=== PATIENT | female | born 1950 | race Caucasian/White ===

== ENCOUNTER 2016-10-26 10:15 | Inpatient (IN) ==
[2016-10-26 11:23] LABS: Apearance,Urine Cloudy (Clear); RBC,Urine 117994 /HPF (0-4); Urine Color Red (Yellow); Urine Specific Gravity 1.015 (1.001-1.035)
[2016-10-26 11:24] LABS: Bilirubin,Urine Negative (Negative); Blood, Urine Large mg/dL (Negative); Glucose,Urine (UA) Negative (Negative); Ketones,Urine Negative (Negative); Nitrite,Urine Negative (Negative); Protein,Urine >500 MG/DL; Urine Urobilinogen 0.2 EU/DL (0.2-1.0)
[2016-10-26 11:25] LABS: Basophils # 0.1 10*3/uL (0.0-0.2); Basophils % 0.5 % (0.0-0.8); Eosinophils # 0.1 10*3/uL (0.0-0.87); Eosinophils % 0.4 % (0.00-10.9); Hematocrit 43.3 VOL% (35.7-47.0); Hemoglobin 14.6 GM/DL (12.0-16.0); Immature Granulocytes % 0.7 %; Immature Granulocytes Absolute 0.13 #; Lymphocytes # 1.1 10*3/uL (1.4-4.0); Lymphocytes % 5.4 % (21.3-54.2); Mean Corpuscular HGB Conc 33.7 GM/DL (32-36); Mean Corpuscular Hemoglobin 30 PG (27-34); Mean Corpuscular Volume 89.5 FL (87-102); Mean Platelet Volume 9.7 FL (9.6-12.0); Monocytes # 1.7 10*3/uL (0.11-0.8); Monocytes % 8.7 % (1.7-12.7); Neutrophils # 16.8 10*3/uL (1.4-7.4); Neutrophils % 84.3 % (38.7-73.9); Platelet Count 291 T/CUMM (130-400); Red Blood Count 4.84 MC/CUMM (3.8-5.5); White Blood Count 19.9 T/CUMM (4-12)
[2016-10-26 12:01] LABS: Albumin 3.8 G/DL (3.4-5.0); Bilirubin,Total 0.7 MG/DL (0.2-1.0); Calcium 9.1 MG/DL (8.5-10.1); Osmolality,Calculated 280.3 MOS/KG (273-304); Potassium 4.5 MMOL/L (3.5-5.1); Total Protein 6.5 G/DL (6.4-8.3)
--- NOTE | 2016-10-26 12:40 | CT Report ---
Referring physician: Zahra Arredondo EXAM: CT abdomen and pelvis without contrast DATE: 10/26/2016 COMPARISON: 09/14/2008 REASON: Dysuria, hematuria, leukocytosis, generalized abdominal pain TECHNIQUE: Axial images of the abdomen and pelvis were obtained without the use of contrast. Coronal and sagittal reformatted images were also provided. Total DLP is 195.7 mGy*cm. 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 The liver is normal in size with no masses, dilated ducts, are calcified gallstones. The spleen, pancreas, adrenal glands, and left kidney are stable in appearance. Minimal right hydronephrosis with periureteral fluid/soft tissue stranding. No definite renal or ureteral calculi are identified. The abdominal aorta is normal in size with no adjacent adenopathy. No dilatation of the small bowel. Limited evaluation of bowel without oral contrast with no evidence of diverticulitis, or free air. Mild gaseous distention of the colon. Prior hysterectomy with decompressed urinary bladder. Minimal free fluid in the right pelvis. Degenerative changes are noted. The appendix is not confidently identified on either exam. IMPRESSION: Minimal right hydronephrosis with no renal or ureteral calculi. Right periureteral fluid/soft tissue stranding which could be related to recent passage of a calculus, inflammation, infectious process, etc. Decompressed urinary bladder which makes it difficult to evaluate for possible bladder wall thickening. Mild gaseous distention of the colon which can be seen with an ileus, etc. Limited evaluation of bowel without oral contrast. 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 Prior hysterectomy with nonspecific minimal free fluid in the right pelvis. The CT exam was performed using one or more of the following dose reduction techniques: Automated exposure control and adjustment of the mA and/or kV according to patient size. PROCEDURE INTERPRETED AT [facility] DEPARTMENT OF RADIOLOGY Final Report Signed by: Dr. Leticia Carrillo
[2016-10-26] MEDS ORDERED: SODIUM CHLORIDE 0.9% 1,000 ML IV STA (12:56)
[2016-10-26] MEDS ORDERED: cefTRIAXone 1,000 MG in SODIUM CHLORIDE 0.9% 100 ML IV STA (12:56)
--- NOTE | 2016-10-26 12:58 | Emergency Department Note ---
Arrival - Arrival Chief Complaint: Urogenital - Female Stated Complaint: blood in urine ED Nursing Triage Note: Pt c/o blood in urine since Tuesday with abd and back pain. Mode of Arrival: Ambulatory Source: Patient Time Seen by Provider: 10/26/16 10:54 - History of Present Illness HPI Narrative: 65 y/o female presents to the ER complaining of gross hematuria, dysuria, back pain, and abdominal pain. Symptoms starting Tuesday and has continued to worsen. Denies N/V or fever. Denies history of kidney stones. Past medical history significant for dementia, hyst, T&A, vertigo, and depression. Primary Care Physician: Dr. Hudson Onset (ago): day(s) (4) Severity: moderate Allergies/Adverse Reactions: Allergies Allergy/AdvReac Type Severity Reaction Status Date / Time No Known Allergies Allergy Verified 01/14/16 08:46 Home Medications: Home Medications Medication Instructions Recorded Confirmed Type Meclizine [Antivert] 25 mg PO TID PRN 01/14/16 01/14/16 History Ondansetron HCl 8 mg PO Q8H PRN 01/14/16 01/14/16 History Tramadol HCl [Tramadol Tab] 50 - 100 mg PO Q6H PRN 01/14/16 01/14/16 History buPROPion [Wellbutrin] 100 mg PO 0700,1600 01/14/16 01/14/16 History clonazePAM [Clonazepam] 0.5 mg PO BID PRN 01/14/16 01/14/16 History Review of System - Review of System 12 point system: reviewed and no additional remarkable complaints except as stated - Review of System Gastrointestinal: Present: abdominal pain Genitourinary female: Present: dysuria, hematuria Musculoskeletal: Present: back pain Medical,Surgical,& Family Hx - Medical History Respiratory: History of: Respiratory Problems (right lung surgery for a "cyst") - Surgical History HEENT Surgeries: Surgical HX of: Tonsilectomy & Adenoidectomy Reproductive Surgeries: Surgical HX of;: Section, Hysterectomy - Social History Smoking Status: Never smoker Exam Vital Signs: Vital Signs Temperature 98.7 F 10/26/16 10:33 Pulse Rate 86 10/26/16 11:26 Respiratory Rate 20 10/26/16 11:26 Blood Pressure 118/71 10/26/16 11:26 O2 Sat by Pulse Oximetry 96 10/26/16 11:26 - General General appearance: alert, in no apparent distress - ENT ENT exam: Present: normal exam, normal oropharynx, mucous membranes moist - Chest Chest inspection: Present: normal inspection - Respiratory Respiratory exam: Present: normal lung sounds bilaterally - Cardiovascular Cardiovascular exam: Present: regular rate, normal rhythm, normal heart sounds - Abdominal Exam Abdominal exam: Present: soft, tenderness (diffuse ), normal bowel sounds - Extremities Exam Extremities exam: Present: normal inspection, full ROM - Back Exam Back exam: Absent: CVA tenderness (R), CVA tenderness (L) - Neurological Exam Neurological exam: Present: alert, oriented X3 - Psychiatric Psychiatric exam: Present: normal affect, normal mood - Skin Skin exam: Present: warm, dry Course - Consultations Consultation #1: Hospitalist Time: 13:00 (Will admit patient ) Results - Labs CBC & BMP: 10/26/16 11:15 10/26/16 11:15 Lab Results: I have reviewed the patients labs - Diagnostic Findings Procedure: CT Abdomen and Pelvis: image reviewed by me, report reviewed by me ( minimal right hydonephrosis with no renal or ureteral calculi. Right periuretral fluid/soft tissue stranding which cough be related to recent passage of calculus, inflammation, or infectious process. Mild gaseous distention of the colon which can be seen with an ileus. ) Disposition Clinical Impression: Leukocytosis, Hydronephrosis Case discussed with: patient Disposition: Still a Patient Instructions: Acute Hematuria (ED)
[2016-10-26] MEDS ORDERED: cefTRIAXone 1,000 MG VIAL ONE (13:09)
--- NOTE | 2016-10-26 14:20 | Hospitalist History & Physical ---
Assessment and Plan - Time spent with patient Time spent with patient: Greater than 30 minutes (1) Pyelonephritis Status: Acute Assessment and plan: 65-year-old white female with history of dementia, chronic pain, depression and anxiety admitted by hospitalist service with pyelonephritis with leukocytosis, gross hematuria, abdominal and flank pain, and hydronephrosis. Patient will be started on antibiotics and IV fluids. Consult urology for the hydronephrosis and periureteral fluid and soft tissue stranding due to possible obstruction. Will restart patient's home medicines when they get entered into the system. Dr. Rodas will see and examined patient and further recommendations to follow. Current Visit: Yes (2) Depression Status: Acute Current Visit: Yes (3) Anxiety Status: Acute Current Visit: Yes (4) Chronic pain Status: Acute Current Visit: Yes (5) Dementia Status: Acute Current Visit: Yes (6) Leukocytosis Status: Acute Current Visit: Yes (7) Hydronephrosis Status: Acute Current Visit: Yes (8) Hematuria Status: Acute Current Visit: Yes History of Present Illness Chief complaint: Red urine History of present illness: Ms. Ayon is a 65 year old female with history of dementia, vertigo, chronic pain and depression presenting to the ED today with bloody urine since Tuesday, abdominal and back pain. Patient is pleasantly demented and history is tenuous at times but I gather that she has had hematuria and back and abdominal pain since Tuesday that has continued to worsen. Her home health nurse came over this morning and she showed him her bloody urine and he called her primary care physician, Dr. Hudson, and he sent her to the ED for evaluation. She denies headache, blurry vision, chest pain, shortness of breath, constipation, or lower extremity edema. She says she has chronic pain on her right chest wall from a lung resection 10 years ago. She is also complaining of lower abdominal and bilateral flank pain. Patient is afebrile vital signs are stable. Her WBCs are 19.9 with a left shift. Her creatinine is normal but her urine is red and cloudy with protein and large blood. CT scan of the abdomen and pelvis show minimal right hydronephrosis with no renal or ureteral calculi. There is right periureteral fluid/soft tissue stranding which could be related to recent passage of a calculus, inflammation, infectious process, etc. She also had mild gaseous distention of the colon which could represent ileus. Patient's case was discussed with Zahra Arredondo NP [employer] in the ED and Dr. Dr. Walsh the admitting hospitalist, and it was agreed patient would be admitted for further evaluation and treatment. Home Medications Medication Instructions Recorded Confirmed Type Meclizine [Antivert] 25 mg PO TID PRN 01/14/16 01/14/16 History Ondansetron HCl 8 mg PO Q8H PRN 01/14/16 01/14/16 History Tramadol HCl [Tramadol Tab] 50 - 100 mg PO Q6H PRN 01/14/16 01/14/16 History buPROPion [Wellbutrin] 100 mg PO 0700,1600 01/14/16 01/14/16 History clonazePAM [Clonazepam] 0.5 mg PO BID PRN 01/14/16 01/14/16 History Allergies Allergy/AdvReac Type Severity Reaction Status Date / Time No Known Allergies Allergy Verified 01/14/16 08:46 Medical,Surgical,& Family Hx - Medical History Psychological: History of: Anxiety Disorders, Depression Neurology: History of: Vertigo Respiratory: History of: Respiratory Problems (right lung surgery for a "cyst") - Surgical History HEENT Surgeries: Surgical HX of: Tonsilectomy & Adenoidectomy Reproductive Surgeries: Surgical HX of;: Section, Hysterectomy Additional Surgical History: Right lung surgery for a "cyst" - Family History Family History: Reports;: Family Heart Disease - Social History Smoking Status: Never smoker Frequency of Alcohol Use: None Type of Drug Use: None Cognitive Capacity: Patient is pleasantly demented Marital Status: Single Lives With:: Alone Functional capacity: independent ambulation Review of systems: A complete 10 system review of systems was obtained and pertinent positives and negatives per HPI Exam - Constitutional Vitals: Period Temp Pulse Resp BP Sys/Huizar Pulse Ox Last 24 Hr 98.7 F-98.7 F 86-99 16-20 114-118/71-71 96-96 Exam: Constitutional System: No distress. No tremulousness. Head: Normocephalic, atraumatic. Ears, Nose and Throat System: No evidence of Otitis or Mastoiditis. No epistaxis or discharge Eyes System: Pupils equal, round, and reactive. Extraocular muscles intact. Neck: Supple, without adenopathy, No jugular venous distention. No thyromegaly, neck mass, or prior surgery apparent. Respiratory System: Chest clear to auscultation. Cardiovascular System: Heart with regular rate and rhythm. No murmur. GI System: Abdomen soft, mildly tender in suprapubic region. Normo active bowel sounds present. Bilateral CVA tenderness Musculoskeletal System: limbs with no pedal edema. Full distal pulses. Neurological System: No discernable sensory deficit. No aphasia Psychiatric System: Conversation is rational the patient is forgetful Results - Labs CBC & BMP: 10/26/16 11:15 10/26/16 11:15 Lab Results: I have reviewed the past 24 hour labs - Diagnostic Findings Procedure: CT Abdomen and Pelvis: report reviewed by me (Minimal right hydronephrosis with no calculi. Right periureteral fluid/soft tissue stranding which could be related to recent passage of calculus, inflammation, infectious process. Gaseous distention of the colon which can be seen with an ileus. 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
[2016-10-26] MEDS ORDERED: ONDANSETRON 4 MG/2 ML VIAL IV PRN (14:26)
[2016-10-26] MEDS ORDERED: diphenhydrAMINE CAP 25 MG CAPSULE PO PRN (14:26)
[2016-10-26] MEDS ORDERED: DOCUSATE SODIUM 100 MG CAPSULE PO PRN (14:26)
[2016-10-26] MEDS ORDERED: ACETAMINOPHEN 325 MG TABLET PO PRN (14:26)
[2016-10-26] MEDS ORDERED: MORPHINE 2 MG/1 ML SYRINGE IV PRN (14:26)
[2016-10-26] MEDS ORDERED: clonazePAM 0.5 MG TABLET PO PRN (14:31)
[2016-10-26] MEDS ORDERED: MECLIZINE 25 MG TABLET PO PRN (14:31)
[2016-10-26] MEDS ORDERED: traMADol 50 MG TABLET PO PRN ×2 (14:31→15:07)
[2016-10-26] MEDS ORDERED: SODIUM CHLORIDE 0.9% 1,000 ML IV SCH (16:00)
[2016-10-26] MEDS: PANTOPRAZOLE 40 MG TABLET PO SCH (16:24)
[2016-10-26] MEDS: buPROPion 100 MG TABLET PO SCH (16:24)
--- NOTE | 2016-10-26 18:31 | Urology Consultation ---
Assessment and Plan - Time spent with patient Time spent with patient: Greater than 30 minutes (1) Hematuria Status: Acute Assessment and plan: I think she passed ureteral calculus. But she does have hematuria and we will evaluate this with cystoscopy. If cystoscopy is normal then she can go home tomorrow afternoon. We will plan to do this late morning tomorrow. We will hold the Lovenox. I do not believe she has pyelonephritis. Her exam is benign. She has no CVA tenderness. Any urine is inconsistent with infectious origin of the urinary tract. Current Visit: Yes History of Present Illness - Data of Consult Patient: new to practice Consult date: 10/26/16 Requesting Physician: Julia Laura - Consult Narrative Reason for consult: Hematuria History of present illness: Ms. Ayno is a 65 year old female who was seen in the emergency room for episodes of gross hematuria. This began actually a week ago. She did have intermittent gross hematuria and so-called "burning" in her abdomen. She is nonspecific about the burning. She has no previous history of kidney stones. She has had some cystitis in the past. She is 1 para 1 vaginal delivery. She has had a hysterectomy. No major procedure recently. No recent history of urinary tract infection. She was seen in the emergency room a CT scan was obtained which was interpreted as having "minimal" hydronephrosis on the left with some stranding around the kidney. No stone seen. No mass in the bladder seen but the bladder deflated. Her urinalysis indeed showed hematuria. But no pyuria. No negative nitrate and no leukocytes. I think she probably passed a kidney stone. I do not think she has pyelonephritis. She needs cystoscopy for the hematuria to rule out lower pathology i.e. bladder tumor. She does not have any risk factors for bladder cancer. But we will perform cystoscopy to complete workup. If her cystoscopy is normal. I think she can go home and we can follow this up as an outpatient. CC: Julia Laura MD - Home Medications and Allergies Home Medications: Home Medications Medication Instructions Recorded Confirmed Type Meclizine [Antivert] 25 mg PO TID PRN 01/14/16 10/26/16 History Ondansetron HCl 8 mg PO Q8H PRN 01/14/16 10/26/16 History buPROPion [Wellbutrin] 100 mg PO 0700,1600 01/14/16 10/26/16 History clonazePAM [Clonazepam] 0.5 mg PO BID PRN 01/14/16 10/26/16 History Baclofen 5 mg PO BEDTIME PRN 10/26/16 10/26/16 History Duloxetine HCl [Duloxetine] 60 mg PO DAILY 10/26/16 10/26/16 History Gabapentin 100 mg PO TID 10/26/16 10/26/16 History HYDROcodone/ACETAMIN 7.5-325 1 tablet PO Q8HR PRN 10/26/16 10/26/16 History [[place] 7.5-325] Allergies/Adverse Reactions: Allergies Allergy/AdvReac Type Severity Reaction Status Date / Time No Known Allergies Allergy Verified 01/14/16 08:46 12 point system: reviewed and no additional remarkable complaints except as stated - Genitourinary Genitourinary: Present: dysuria, flank pain, hematuria (Growth, pain is on multiple occasions). Absent: abnormal vaginal bleeding, difficulty urinating Exam - Constitutional Vitals: Period Temp Pulse Resp BP Sys/Huizar Pulse Ox Last 24 Hr 98.4 F 82 20 125/81 98 - GI/Abdominal GI/Abdominal exam: Present: normal bowel sounds, tenderness (Bilateral lower quadrant), soft. Absent: ascites, distended, firm, guarding, hyperactive bowel sounds, hypoactive bowel sounds, hernia, mass, Matt's sign, organomegaly, psoas sign, rebound - Genitourinary Genitourinary: external genitalia normal Results - Labs CBC & BMP: 10/26/16 11:15 10/26/16 11:15 Lab Results: I have reviewed the past 24 hour labs - Diagnostic Findings Procedure: CT Abdomen and Pelvis: report reviewed by me Specialty Discharge - Follow Up or Referrals
[2016-10-26] MEDS ORDERED: ENOXAPARIN 40 MG/0.4 ML SYRINGE SUBCUT SCH (21:00)
[2016-10-27 07:01] LABS: Basophils # 0.1 10*3/uL (0.0-0.2); Basophils % 0.9 % (0.0-0.8); Eosinophils # 0.2 10*3/uL (0.0-0.87); Eosinophils % 1.4 % (0.00-10.9); Hematocrit 42.5 VOL% (35.7-47.0); Hemoglobin 14.2 GM/DL (12.0-16.0); Immature Granulocytes % 0.8 %; Immature Granulocytes Absolute 0.08 #; Lymphocytes # 1.2 10*3/uL (1.4-4.0); Lymphocytes % 11.2 % (21.3-54.2); Mean Corpuscular HGB Conc 33.4 GM/DL (32-36); Mean Corpuscular Hemoglobin 30 PG (27-34); Mean Corpuscular Volume 89.9 FL (87-102); Mean Platelet Volume 9.9 FL (9.6-12.0); Monocytes # 1.2 10*3/uL (0.11-0.8); Monocytes % 10.9 % (1.7-12.7); Neutrophils # 7.9 10*3/uL (1.4-7.4); Neutrophils % 74.8 % (38.7-73.9); Platelet Count 285 T/CUMM (130-400); Red Blood Count 4.73 MC/CUMM (3.8-5.5); Red Cell Distribution Width 12.9 % (9.3-17.3); White Blood Count 10.6 T/CUMM (4-12)
[2016-10-27 07:33] LABS: Calcium 8.8 MG/DL (8.5-10.1); Osmolality,Calculated 279.3 MOS/KG (273-304); Potassium 4.1 MMOL/L (3.5-5.1)
[2016-10-27] MEDS ORDERED: cefTRIAXone 1,000 MG in SODIUM CHLORIDE 0.9% 100 ML IV SCH (09:00)
[2016-10-27] MEDS: buPROPion 100 MG TABLET PO SCH (09:36)
[2016-10-27] MEDS: PANTOPRAZOLE 40 MG TABLET PO SCH (09:36)
--- NOTE | 2016-10-27 12:02 | Operative Note ---
Date of procedure: 10/27/16 Pre-op diagnosis: Gross hematuria Post-op diagnosis: same (Hemorrhagic cystitis) Procedure: 65-year-old female who had subjective fever and gross hematuria. She was admitted the hospital CT scan showed some stranding around the kidney and minimal hydronephrosis. Her urine has remained clear. She is brought in for cystoscopy. Technique patient brought to the cystoscopy suite left on the stretcher in supine position and prepared and draped in usual sterile manner. Tube Xylocaine jelly is placed in urethra and bladder for anesthesia. Flexible 16 [place] cystourethroscope passed under direct vision. Urethra is normal. The bladder shows multiple erythematous patches consistent with a hemorrhagic cystitis. There is no lesions that appear to be cancer. Ureteral orifices normal clear reflux. The bladder was barbotage saline cytology. Bladder drained cystoscope removed based on procedure well. Plan her urine cultures growing gram-negative. So this is probably hemorrhagic cystitis. She has not had any fever and her white count is normal. As far as I am concerned she could go home. We will make her an appointment see me in 2 weeks I would treat with Bactrim twice a day for a week. Anesthesia: local Surgeon / Physician: Rigoberto Neal Estimated blood loss: none Specimens: other (Barbotaged urine for cytology) Condition: stable Disposition: floor Results - Labs CBC & BMP: 10/27/16 06:39 10/27/16 06:39 Discharge Plan - Discharge Medications No Action buPROPion [Wellbutrin] 100 mg PO 0700,1600 Meclizine [Antivert] 25 mg PO TID PRN PRN Reason: Dizziness clonazePAM [Clonazepam] 0.5 mg PO BID PRN PRN Reason: Anxiety Ondansetron HCl 8 mg PO Q8H PRN PRN Reason: Nausea Baclofen 5 mg PO BEDTIME PRN PRN Reason: Muscle Spasm HYDROcodone/ACETAMIN 7.5-325 [[place] 7.5-325] 1 tablet PO Q8HR PRN PRN Reason: Pain Gabapentin 100 mg PO TID Duloxetine HCl [Duloxetine] 60 mg PO DAILY - Follow Up or Referral - Forms/Instructions Instructions: Acute Hematuria (ED)
--- NOTE | 2016-10-27 13:07 | Discharge Summary ---
Hospital Course - Hospital Course Hospital Course: Ms. Werner was admitted for evaluation of hematuria. She is found to have leukocytosis and CT of the abdomen and pelvis revealed mild hydronephrosis on the right side and soft tissue stranding of the ureter. She was initiated on ceftriaxone. White blood cell count by discharge had normalized. Patient was evaluated by urology who performed a cystoscope. She was found to have hemorrhagic cystitis. Patient will be prescribed Bactrim DS for 1 week and will follow up with urology in 2 weeks. By discharge she had met maximum benefit of hospitalization. I spent 33 minutes coordinating this discharge. - Time spent with patient Time with patient DS: Greater than 30 minutes Specialty Discharge - Follow Up or Referrals Discharge Plan - Discharge Data Disposition: Disch To Home/Self Care Condition at Discharge: Stable Discharge Diet: advance to your usual diet Activity: resume usual activities as tolerated - Discharge Medications New Sulfameth/Trimeth 800-160 Tab [Bactrim DS Tab] 1 tablet PO BID #14 tablet Continue buPROPion [Wellbutrin] 100 mg PO 0700,1600 Meclizine [Antivert] 25 mg PO TID PRN PRN Reason: Dizziness clonazePAM [Clonazepam] 0.5 mg PO BID PRN PRN Reason: Anxiety Ondansetron HCl 8 mg PO Q8H PRN PRN Reason: Nausea Baclofen 5 mg PO BEDTIME PRN PRN Reason: Muscle Spasm HYDROcodone/ACETAMIN 7.5-325 [[place] 7.5-325] 1 tablet PO Q8HR PRN PRN Reason: Pain Gabapentin 100 mg PO TID Duloxetine HCl [Duloxetine] 60 mg PO DAILY - Follow Up or Referral - Forms/Instructions Instructions: Acute Hematuria (ED) Exam - Constitutional Vitals: Period Temp Pulse Resp BP Sys/Huizar Pulse Ox Last 24 Hr 98.2 F-98.6 F 71-82 18-20 102-125/56-81 92-98 General appearance: normal weight, no acute distress - Head Head exam: Present: normal inspection, normocephalic, atraumatic - Eye Eye exam: Present: EOMI Pupils: Present: LAURIE - ENT ENT exam: Present: normal exam - Neck Neck exam: Present: normal inspection - Respiratory Respiratory exam: Present: clear to auscultation bilaterally. Absent: accessory muscle use, prolonged expiratory phase, wheezes - Cardiovascular Cardiovascular exam: Present: regular rate and rhythm. Absent: bradycardia, irregular rhythm, systolic murmur - GI/Abdominal GI/Abdominal exam: Present: normal bowel sounds. Absent: ascites, distended, hypoactive bowel sounds, tenderness - Extremities Exam Extremities exam: Present: normal inspection Discharge Results Procedures and tests throughout hospitalization: Pending Orders 10/26/16 10:36 Urine Culture Routine Labs on day of discharge: Labs from last 24 hours 10/27/16 10/27/16 06:39 06:39 WBC 10.6 D RBC 4.73 Hgb 14.2 Hct 42.5 MCV 89.9 MCH 30 MCHC 33.4 RDW 12.9 Plt Count 285 MPV 9.9 Neut % (Auto) 74.8 H Lymph % (Auto) 11.2 L Lamar % (Auto) 10.9 Eos % (Auto) 1.4 Baso % (Auto) 0.9 H Neut # (Auto) 7.9 H Lymph # (Auto) 1.2 L [place] # (Auto) 1.2 H Eos # (Auto) 0.2 Baso # (Auto) 0.1 Immature Gran % 0.8 Nucleated RBC % 0.0 Immature Gran # 0.08 Nucleated RBCs # 0.00 Sodium 141 Potassium 4.1 Chloride 106 Carbon Dioxide 26 Anion Gap 13.1 BUN 12 Creatinine 0.80 GFR Calculation 63 BUN/Creatinine Ratio 15.00 Glucose 74 Calculated Osmolality 279.3 Calcium 8.8 DS: Provider Date of admission: 10/26/16 13:50 Primary care physician: . No PCP Attending physician on admission: Julia Laura MD Consults: 10/26/16 14:26 Consult to Physician [CONS] Routine Comment: pyelonephritis w hydronephrosis Consulting Provider: Rigoberto Neal When should Consulting Provider be notified: Now Person Notified: BENJAMÍN Date Notified: 10/26/16 Time Notified: 15:34 Discharging clinician: Julia Laura MD Expected date of discharge: 10/27/16
[2016-10-27 13:26] VITALS: BP 102/58
--- NOTE | 2016-10-28 12:18 | Physician Query Form ---
CLICK EDIT DOCUMENT TO SELECT QUERY ANSWER --> OK --> SIGN Bronwyn Loyd RN Clinical Commercial Account Manager W) [phone] (f) [phone] [email or web address]: Make your selection(s) from the choices in EACH section by typing an "x" and enter comments in the comment section. Please use your independent medical judgment in providing your response. This request does not imply that any particular answer is desired or expected. CLINICAL INDICATORS: (Providers should not edit this section) Pt. admitted with hematuria. Pt. had cystoscopy that showed hemorrhagic cystitis. Please clarify the acuity of the hemorrhagic cystitis. Clarify which of the following accurately represents the acuity of the above diagnosis. (x ) Acute ( ) Acute on chronic ( ) Chronic stable condition ( ) Remission ( ) Other, please specify: ( ) Clinically unable to determine COMMENTS: PLEASE ALSO DOCUMENT RESPONSE IN PROGRESS NOTES AND/OR DISCHARGE SUMMARY Use of terms such as suspected, likely, or probable (associated with a specific diagnosis that is being evaluated, monitored, or treated as if it exists) are acceptable and can be restated in the discharge summary if not ruled out. [facility]
== END 2016-10-27 15:11 | disposition home health service (06) | DRG 690 ==
LOC: N.ED 10:15 → N.2E 13:50
PROVIDERS: ADMIT Internal Medicine; ATTEND Internal Medicine

== ENCOUNTER 2019-11-21 12:19 | Inpatient (IN) ==
[2019-11-21] MEDS ORDERED: SODIUM CHLORIDE 0.9% 500 ML IV STA (13:05)
[2019-11-21 13:39] LABS: Basophils # 0.1 10*3/uL (0.0-0.2); Basophils % 0.6 % (0.0-0.8); Eosinophils # 0.4 10*3/uL (0.0-0.87); Eosinophils % 2.2 % (0.00-10.9); Hematocrit 36.6 VOL% (35.7-47.0); Hemoglobin 11.1 GM/DL (12.0-16.0); Immature Granulocytes % 1.5 %; Immature Granulocytes Absolute 0.26 #; Lymphocytes # 1.7 10*3/uL (1.4-4.0); Lymphocytes % 9.8 % (21.3-54.2); Mean Corpuscular HGB Conc 30.3 GM/DL (32-36); Mean Corpuscular Volume 93.4 FL (87-102); Mean Platelet Volume 9.6 FL (9.6-12.0); Monocytes % 10.8 % (1.7-12.7); Neutrophils % 75.1 % (38.7-73.9); Platelet Count 402 T/CUMM (130-400); Red Blood Count 3.92 MC/CUMM (3.8-5.5); Red Cell Distribution Width 15.1 % (9.3-17.3); White Blood Count 17.6 T/CUMM (4-12)
[2019-11-21 15:21] LABS: Apearance,Urine CLEAR (Clear); Bilirubin,Urine Negative (Negative); Blood, Urine Negative (Negative); Glucose,Urine (UA) Negative (Negative); Hyaline Casts,Urine 15 /LPF (0-3); Ketones,Urine Negative (Negative); Mucus,Urine Occasional /LPF (Occasional); Nitrite,Urine Negative (Negative); Protein,Urine Negative; RBC,Urine 2 /HPF (0-4); Squamous Epithelial Cell,Urine Occasional /HPF (0-10); Urine Color Yellow (Yellow); Urine Specific Gravity 1.016 (1.001-1.035); Urine Urobilinogen < 2.0 EU/DL (0.2-1.0); WBC,Urine 1 /HPF (0-6)
[2019-11-21] MEDS ORDERED: DEXTROSE 10% 250 ML BAG IV PRN (15:31)
[2019-11-21] MEDS ORDERED: GLUCAGON 1 MG VIAL IM PRN (15:31)
[2019-11-21] MEDS ORDERED: ONDANSETRON 4 MG/2 ML VIAL IV PRN (15:31)
[2019-11-21] MEDS ORDERED: MECLIZINE 25 MG TABLET PO PRN (15:38)
[2019-11-21 15:51] LABS: Calcium 8.6 MG/DL (8.5-10.1); Osmolality,Calculated 277.7 MOS/KG (273-304)
[2019-11-21 16:01] LABS: Risk Ratio 4.73; Thyroid Stimulating Hormone 4.49 uIU/ml (0.358-3.74)
[2019-11-21] MEDS: SODIUM CHLORIDE 0.9% 1,000 ML IV SCH (18:30)
[2019-11-21] MEDS: MEMANTINE 10 MG TABLET PO SCH (20:41)
[2019-11-21] MEDS: tiZANidine 4 MG TABLET PO SCH (20:41)
[2019-11-21] MEDS: DONEPEZIL 10 MG TABLET PO SCH (20:41)
[2019-11-21] MEDS: PANTOPRAZOLE 40 MG VIAL IV SCH (20:41)
[2019-11-21 20:58] LABS: Hematocrit 33.3 VOL% (35.7-47.0); Hemoglobin 10.3 GM/DL (12.0-16.0)
[2019-11-22 06:13] LABS: Basophils # 0.1 10*3/uL (0.0-0.2); Basophils % 0.6 % (0.0-0.8); Eosinophils # 0.6 10*3/uL (0.0-0.87); Hematocrit 32.7 VOL% (35.7-47.0); Hemoglobin 9.9 GM/DL (12.0-16.0); Immature Granulocytes % 1.2 %; Immature Granulocytes Absolute 0.23 #; Lymphocytes # 2.1 10*3/uL (1.4-4.0); Lymphocytes % 11.1 % (21.3-54.2); Mean Corpuscular HGB Conc 30.3 GM/DL (32-36); Mean Corpuscular Volume 94.8 FL (87-102); Mean Platelet Volume 9.9 FL (9.6-12.0); Monocytes % 13.5 % (1.7-12.7); Neutrophils % 70.6 % (38.7-73.9); Platelet Count 398 T/CUMM (130-400); Red Blood Count 3.45 MC/CUMM (3.8-5.5); Red Cell Distribution Width 15.1 % (9.3-17.3); White Blood Count 18.7 T/CUMM (4-12)
[2019-11-22 06:35] LABS: Calcium 8.1 MG/DL (8.5-10.1); Osmolality,Calculated 283.1 MOS/KG (273-304)
[2019-11-22] MEDS: SODIUM CHLORIDE 0.9% 1,000 ML IV SCH ×2 (07:50→19:39)
[2019-11-22] MEDS: CALCIUM (CARBONATE) 600 MG TABLET PO SCH (08:27)
[2019-11-22] MEDS: MEMANTINE 10 MG TABLET PO SCH (08:27)
[2019-11-22] MEDS: tiZANidine 4 MG TABLET PO SCH ×2 (08:27→21:26)
[2019-11-22] MEDS: SERTRALINE 25 MG TABLET PO SCH (08:28)
[2019-11-22] MEDS: PANTOPRAZOLE 40 MG VIAL IV SCH ×2 (08:28→21:27)
[2019-11-22] MEDS: POTASSIUM CHLORIDE 20 MEQ TABLET PO SCH (08:34)
[2019-11-22] MEDS ORDERED: MAGNESIUM SULF RIDER 2 GM in PREMIX 1 EACH IV PRN (09:38)
[2019-11-22] MEDS ORDERED: MAGNESIUM SULF RIDER 4 GM in PREMIX 1 EACH IV PRN (09:38)
[2019-11-22] MEDS ORDERED: SODIUM CHLORIDE 0.9% 500 ML IV ONE ×2 (11:23→11:24)
[2019-11-22] MEDS ORDERED: SODIUM CHLORIDE 0.9% 1,000 ML IV PRN (11:25)
[2019-11-22 11:48] LABS: Hematocrit 26.3 VOL% (35.7-47.0); Hemoglobin 8.1 GM/DL (12.0-16.0)
[2019-11-22] MEDS: ACETAMINOPHEN 325 MG TABLET PO PRN (11:48)
[2019-11-22 18:45] LABS: Hematocrit 43.7 VOL% (35.7-47.0)
[2019-11-22 18:46] LABS: Hemoglobin 13.8 GM/DL (12.0-16.0)
[2019-11-22] MEDS: DONEPEZIL 10 MG TABLET PO SCH (21:26)
[2019-11-23 05:44] LABS: Basophils # 0.1 10*3/uL (0.0-0.2); Basophils % 0.9 % (0.0-0.8); Eosinophils # 0.6 10*3/uL (0.0-0.87); Eosinophils % 4.3 % (0.00-10.9); Hematocrit 39.3 VOL% (35.7-47.0); Hemoglobin 12.2 GM/DL (12.0-16.0); Immature Granulocytes % 1.3 %; Immature Granulocytes Absolute 0.16 #; Lymphocytes # 1.6 10*3/uL (1.4-4.0); Lymphocytes % 12.9 % (21.3-54.2); Mean Corpuscular Volume 94.2 FL (87-102); Mean Platelet Volume 9.9 FL (9.6-12.0); Monocytes % 14.5 % (1.7-12.7); Neutrophils % 66.1 % (38.7-73.9); Platelet Count 312 T/CUMM (130-400); Red Blood Count 4.17 MC/CUMM (3.8-5.5); Red Cell Distribution Width 14.9 % (9.3-17.3); White Blood Count 12.7 T/CUMM (4-12)
[2019-11-23 06:09] LABS: Calcium 7.4 MG/DL (8.5-10.1); Osmolality,Calculated 276.4 MOS/KG (273-304)
[2019-11-23] MEDS: LEVOTHYROXINE 25 MCG TABLET PO SCH (06:25)
[2019-11-23] MEDS: SODIUM CHLORIDE 0.9% 1,000 ML IV SCH ×2 (07:49→23:24)
[2019-11-23] MEDS ORDERED: propofoL 200 MG/20 ML VIAL IV ONE (09:00)
[2019-11-23] MEDS ORDERED: LIDOCAINE 2% 5 ML VIAL ONE (09:00)
[2019-11-23] MEDS ORDERED: PANTOPRAZOLE 40 MG VIAL IV ONE (10:40)
[2019-11-23] MEDS: tiZANidine 4 MG TABLET PO SCH ×2 (10:43→21:54)
[2019-11-23] MEDS: CALCIUM (CARBONATE) 600 MG TABLET PO SCH (10:43)
[2019-11-23] MEDS: POTASSIUM CHLORIDE 20 MEQ TABLET PO SCH (10:43)
[2019-11-23] MEDS: SERTRALINE 25 MG TABLET PO SCH (10:44)
[2019-11-23] MEDS: PANTOPRAZOLE 40 MG VIAL IV SCH (10:45)
[2019-11-23] MEDS: ACETAMINOPHEN 325 MG TABLET PO PRN (10:54)
[2019-11-23 13:05] LABS: Hematocrit 43.2 VOL% (35.7-47.0); Hemoglobin 13.2 GM/DL (12.0-16.0)
[2019-11-23] MEDS: PANTOPRAZOLE 40 MG TABLET PO SCH (18:09)
[2019-11-23] MEDS: DONEPEZIL 10 MG TABLET PO SCH (21:54)
[2019-11-23] MEDS ORDERED: ZALEPLON 5 MG CAPSULE PO PRN (22:45)
[2019-11-24 05:22] LABS: Basophils # 0.1 10*3/uL (0.0-0.2); Basophils % 0.7 % (0.0-0.8); Eosinophils # 0.7 10*3/uL (0.0-0.87); Eosinophils % 4.5 % (0.00-10.9); Hematocrit 39.5 VOL% (35.7-47.0); Hemoglobin 12.3 GM/DL (12.0-16.0); Immature Granulocytes % 1.3 %; Lymphocytes # 1.9 10*3/uL (1.4-4.0); Lymphocytes % 12.8 % (21.3-54.2); Mean Corpuscular HGB Conc 31.1 GM/DL (32-36); Mean Corpuscular Volume 91.9 FL (87-102); Mean Platelet Volume 9.9 FL (9.6-12.0); Monocytes % 12.1 % (1.7-12.7); Neutrophils % 68.6 % (38.7-73.9); Platelet Count 344 T/CUMM (130-400); Red Cell Distribution Width 15.1 % (9.3-17.3)
[2019-11-24 06:06] LABS: Calcium 7.5 MG/DL (8.5-10.1); Osmolality,Calculated 275.5 MOS/KG (273-304)
[2019-11-24] MEDS: PANTOPRAZOLE 40 MG TABLET PO SCH (07:16)
[2019-11-24] MEDS: LEVOTHYROXINE 25 MCG TABLET PO SCH (07:16)
[2019-11-24] MEDS: ACETAMINOPHEN 325 MG TABLET PO PRN (07:51)
[2019-11-24] MEDS: tiZANidine 4 MG TABLET PO SCH (08:47)
[2019-11-24] MEDS: SERTRALINE 25 MG TABLET PO SCH (08:48)
[2019-11-24] MEDS: CALCIUM (CARBONATE) 600 MG TABLET PO SCH (08:48)
[2019-11-24] MEDS: POTASSIUM CHLORIDE 20 MEQ TABLET PO SCH (08:48)
[2019-11-24] MEDS ORDERED: ZINC OXIDE 16% PASTE 57 GM TUBE TOP PRN (09:17)
[2019-11-24] MEDS: SODIUM CHLORIDE 0.9% 1,000 ML IV SCH (11:45)
[2019-11-24 12:15] VITALS: BP 96/36
== END 2019-11-24 13:20 | disposition home or self-care (01) | DRG 378 ==
LOC: N.EDINP 12:19 → N.ED 12:19 → N.TELES 18:14
PROVIDERS: ADMIT Internal Medicine; ATTEND Internal Medicine

== ENCOUNTER 2021-02-17 05:45 | Inpatient (IN) ==
[2021-02-11 11:25] LABS: Basophils # 0.1 10*3/uL (0.0-0.2); Basophils % 0.8 % (0.0-0.8); Eosinophils # 0.3 10*3/uL (0.0-0.87); Eosinophils % 2.4 % (0.00-10.9); Hematocrit 42.9 VOL% (35.7-47.0); Immature Granulocytes % 0.5 %; Immature Granulocytes Absolute 0.06 #; Lymphocytes # 1.8 10*3/uL (1.4-4.0); Lymphocytes % 16.1 % (21.3-54.2); Mean Corpuscular HGB Conc 30.3 GM/DL (32-36); Mean Corpuscular Volume 93.7 FL (87-102); Mean Platelet Volume 10.2 FL (9.6-12.0); Monocytes % 12.2 % (1.7-12.7); Platelet Count 391 T/CUMM (130-400); Red Blood Count 4.58 MC/CUMM (3.8-5.5); Red Cell Distribution Width 15.5 % (9.3-17.3); White Blood Count 10.9 T/CUMM (4-12)
[2021-02-11 11:51] LABS: Calcium 8.5 MG/DL (8.5-10.1); Osmolality,Calculated 284.1 MOS/KG (273-304); Potassium 4.9 MMOL/L (3.5-5.1)
[~2021-02-17 05:45] MED LIST: LACTATED RINGERS 1,000 ML IV SCH
[2021-02-17] MEDS ORDERED: ACETAMINOPHEN 500 MG TABLET PO ONE (06:00)
[2021-02-17] MEDS ORDERED: DIAZEPAM 5 MG TABLET PO ONE (06:00)
[2021-02-17] MEDS ORDERED: GABAPENTIN 400 MG CAPSULE PO ONE (06:00)
[2021-02-17] MEDS ORDERED: FAMOTIDINE 20 MG TABLET PO ONE (06:00)
[2021-02-17] MEDS ORDERED: SCOPOLAMINE 1.5 MG PATCH TRANSDERM ONE (06:59)
[2021-02-17] MEDS ORDERED: ONDANSETRON 4 MG/2 ML VIAL IV ONE (06:59)
[2021-02-17] MEDS ORDERED: LACTATED RINGERS 1,000 ML IV SCH (07:00)
[2021-02-17] MEDS ORDERED: MIDAZOLAM 2 MG/2 ML VIAL ONE (07:51)
[2021-02-17] MEDS ORDERED: propofoL 200 MG/20 ML VIAL IV ONE (07:51)
[2021-02-17] MEDS ORDERED: ROCURONIUM 50 MG/5 ML VIAL IV ONE (07:51)
[2021-02-17] MEDS ORDERED: fentaNYL 100 MCG/2 ML VIAL ONE (07:51)
[2021-02-17] MEDS ORDERED: LIDOCAINE 2% 5 ML VIAL ONE (07:51)
[2021-02-17] MEDS ORDERED: ROPIVACAINE 0.5% 30 ML VIAL ONE (08:15)
[2021-02-17] MEDS ORDERED: DEXAMETHASONE 4 MG/1 ML VIAL ONE ×2 (08:15→09:50)
[2021-02-17] MEDS ORDERED: ePHEDrine 50 MG/ML VIAL ONE (09:06)
[2021-02-17] MEDS ORDERED: ONDANSETRON 4 MG/2 ML VIAL ONE ×2 (09:50)
[2021-02-17] MEDS ORDERED: PHENYLEPHRINE 1 MG/10 ML SYRINGE IV ONE (09:50)
[2021-02-17] MEDS ORDERED: SODIUM CHLORIDE 0.9% 1,000 ML IV ONE (09:50)
[2021-02-17] MEDS ORDERED: GLYCOPYRROLATE 0.4 MG/2 ML VIAL ONE (10:05)
[2021-02-17] MEDS ORDERED: NEOSTIGMINE 10 MG/10 ML VIAL ONE (10:05)
[2021-02-17] MEDS ORDERED: ONDANSETRON 4 MG/2 ML VIAL IV PRN (10:44)
[2021-02-17] MEDS ORDERED: HYDROmorphone 2 MG/1 ML VIAL ONE (10:45)
[2021-02-17] MEDS: HYDROmorphone 2 MG/1 ML VIAL IV PRN ×3 (10:48→10:58)
[2021-02-17] MEDS ORDERED: MEPERIDINE 25 MG/1 ML VIAL IV ONE (11:11)
[2021-02-17] MEDS ORDERED: ONDANSETRON 4 MG TABLET PO PRN (11:52)
[2021-02-17] MEDS ORDERED: PROMETHAZINE 25 MG/1 ML VIAL IM PRN (11:52)
[2021-02-17 12:37] LABS: Basophils # 0.1 10*3/uL (0.0-0.2); Basophils % 0.4 % (0.0-0.8); Eosinophils # 0.1 10*3/uL (0.0-0.87); Eosinophils % 0.4 % (0.00-10.9); Hematocrit 43.2 VOL% (35.7-47.0); Hemoglobin 13.2 GM/DL (12.0-16.0); Immature Granulocytes % 0.6 %; Immature Granulocytes Absolute 0.15 #; Lymphocytes # 1.2 10*3/uL (1.4-4.0); Lymphocytes % 4.9 % (21.3-54.2); Mean Corpuscular HGB Conc 30.6 GM/DL (32-36); Mean Corpuscular Volume 93.1 FL (87-102); Mean Platelet Volume 9.8 FL (9.6-12.0); Monocytes % 3.6 % (1.7-12.7); Neutrophils % 90.1 % (38.7-73.9); Platelet Count 331 T/CUMM (130-400); Red Blood Count 4.64 MC/CUMM (3.8-5.5); Red Cell Distribution Width 15.1 % (9.3-17.3); White Blood Count 25.1 T/CUMM (4-12)
[2021-02-17] MEDS: LACTATED RINGERS 1,000 ML IV SCH (12:41)
[2021-02-17] MEDS: KETOROLAC 15 MG/1 ML VIAL IV SCH ×2 (12:42→17:42)
[2021-02-17 13:00] LABS: Band Neutrophils 5 % (0-10); Lymphocytes 3 % (20-55); Metamyelocytes 1 %; Segmented Neutrophils 89 % (50-85); Total Cells Counted 100
[2021-02-17 13:01] LABS: Atypical Lymphocytes Moderate; Toxic Granulation 1+
[2021-02-17 13:02] LABS: Calcium 7.3 MG/DL (8.5-10.1); Osmolality,Calculated 284.3 MOS/KG (273-304); Potassium 3.5 MMOL/L (3.5-5.1); Spherocytes Slight
[2021-02-17] MEDS ORDERED: DICLOFENAC SODIUM 25 MG PO SCH (21:00)
[2021-02-17] MEDS: PREGABALIN 25 MG CAPSULE PO SCH (21:35)
[2021-02-17] MEDS: DONEPEZIL 10 MG TABLET PO SCH (21:35)
[2021-02-17] MEDS: MEMANTINE 10 MG TABLET PO SCH (21:36)
[2021-02-17] MEDS: MECLIZINE 25 MG TABLET PO SCH (21:36)
[2021-02-18] MEDS: KETOROLAC 15 MG/1 ML VIAL IV SCH ×5 (00:23→23:54)
[2021-02-18] MEDS: ONDANSETRON 4 MG/2 ML VIAL IV PRN (00:49)
[2021-02-18] MEDS: HYDROmorphone 2 MG/1 ML VIAL IV PRN (01:01)
[2021-02-18] MEDS ORDERED: ENOXAPARIN 40 MG/0.4 ML SYRINGE SUBCUT SCH (06:00)
[2021-02-18] MEDS: LACTATED RINGERS 1,000 ML IV SCH ×3 (06:18→23:13)
[2021-02-18 06:30] LABS: Basophils % 0.2 % (0.0-0.8); Eosinophils % 0.2 % (0.00-10.9); Immature Granulocytes % 0.8 %; Immature Granulocytes Absolute 0.13 #; Lymphocytes # 1.5 10*3/uL (1.4-4.0); Lymphocytes % 8.8 % (21.3-54.2); Mean Corpuscular HGB Conc 31.4 GM/DL (32-36); Mean Corpuscular Volume 91.8 FL (87-102); Mean Platelet Volume 10.2 FL (9.6-12.0); Monocytes % 10.3 % (1.7-12.7); Neutrophils % 79.7 % (38.7-73.9); Platelet Count 319 T/CUMM (130-400); Red Cell Distribution Width 15.3 % (9.3-17.3)
[2021-02-18 06:31] LABS: Hemoglobin 9.1 GM/DL (12.0-16.0); Red Blood Count 3.16 MC/CUMM (3.8-5.5)
[2021-02-18 06:48] LABS: Osmolality,Calculated 276.7 MOS/KG (273-304); Potassium 4.8 MMOL/L (3.5-5.1)
[2021-02-18] MEDS: FERROUS SULFATE 325 MG TABLET PO SCH (08:09)
[2021-02-18] MEDS: MAGNESIUM OXIDE 400 MG TABLET PO SCH (08:09)
[2021-02-18] MEDS: MEMANTINE 10 MG TABLET PO SCH ×2 (08:09→21:26)
[2021-02-18] MEDS: SERTRALINE 50 MG TABLET PO SCH (08:10)
[2021-02-18] MEDS: tiZANidine 4 MG TABLET PO SCH (08:10)
[2021-02-18] MEDS: PREGABALIN 25 MG CAPSULE PO SCH ×2 (08:10→21:27)
[2021-02-18] MEDS: MECLIZINE 25 MG TABLET PO SCH ×2 (08:10→21:27)
[2021-02-18 11:55] LABS: Hematocrit 27.8 VOL% (35.7-47.0); Hemoglobin 8.7 GM/DL (12.0-16.0)
[2021-02-18] MEDS: DONEPEZIL 10 MG TABLET PO SCH (21:26)
[2021-02-19 05:51] LABS: Basophils # 0.1 10*3/uL (0.0-0.2); Basophils % 0.3 % (0.0-0.8); Eosinophils # 0.1 10*3/uL (0.0-0.87); Eosinophils % 0.3 % (0.00-10.9); Hematocrit 25.9 VOL% (35.7-47.0); Hemoglobin 8.2 GM/DL (12.0-16.0); Immature Granulocytes % 1.3 %; Immature Granulocytes Absolute 0.28 #; Lymphocytes # 0.7 10*3/uL (1.4-4.0); Lymphocytes % 3.4 % (21.3-54.2); Mean Corpuscular HGB Conc 31.7 GM/DL (32-36); Mean Corpuscular Volume 91.2 FL (87-102); Mean Platelet Volume 10.4 FL (9.6-12.0); Monocytes % 9.7 % (1.7-12.7); Platelet Count 231 T/CUMM (130-400); Red Blood Count 2.84 MC/CUMM (3.8-5.5); Red Cell Distribution Width 15.7 % (9.3-17.3); White Blood Count 21.2 T/CUMM (4-12)
[2021-02-19 06:13] LABS: Lymphocytes 3 % (20-55); Platelet Estimate Adequate; Segmented Neutrophils 88 % (50-85); Total Cells Counted 100
[2021-02-19 06:14] LABS: Hypochromasia 1+; Microcytosis 1+
[2021-02-19 06:19] LABS: Osmolality,Calculated 278.7 MOS/KG (273-304); Potassium 4.6 MMOL/L (3.5-5.1)
[2021-02-19] MEDS: KETOROLAC 15 MG/1 ML VIAL IV SCH ×4 (06:24→23:38)
[2021-02-19] MEDS: tiZANidine 4 MG TABLET PO SCH (09:48)
[2021-02-19] MEDS: MAGNESIUM OXIDE 400 MG TABLET PO SCH (09:48)
[2021-02-19] MEDS: SERTRALINE 50 MG TABLET PO SCH (09:49)
[2021-02-19] MEDS: MECLIZINE 25 MG TABLET PO SCH ×2 (09:49→21:18)
[2021-02-19] MEDS: FERROUS SULFATE 325 MG TABLET PO SCH (09:50)
[2021-02-19] MEDS: MEMANTINE 10 MG TABLET PO SCH ×2 (09:50→21:18)
[2021-02-19] MEDS: PREGABALIN 25 MG CAPSULE PO SCH ×2 (09:50→21:17)
[2021-02-19] MEDS: LACTATED RINGERS 1,000 ML IV SCH ×2 (09:51→18:50)
[2021-02-19 11:51] LABS: Hemoglobin 8.2 GM/DL (12.0-16.0)
[2021-02-19] MEDS: ACETAMINOPHEN 325 MG TABLET PO PRN (20:08)
[2021-02-19] MEDS: DONEPEZIL 10 MG TABLET PO SCH (21:18)
[2021-02-20] MEDS: LACTATED RINGERS 1,000 ML IV SCH ×3 (01:25→12:53)
[2021-02-20 04:54] LABS: Basophils # 0.1 10*3/uL (0.0-0.2); Basophils % 0.3 % (0.0-0.8); Eosinophils # 0.1 10*3/uL (0.0-0.87); Eosinophils % 0.3 % (0.00-10.9); Hematocrit 24.6 VOL% (35.7-47.0); Hemoglobin 7.9 GM/DL (12.0-16.0); Immature Granulocytes % 2.9 %; Immature Granulocytes Absolute 0.71 #; Lymphocytes # 0.8 10*3/uL (1.4-4.0); Lymphocytes % 3.2 % (21.3-54.2); Mean Corpuscular HGB Conc 32.1 GM/DL (32-36); Mean Corpuscular Volume 91.4 FL (87-102); Mean Platelet Volume 10.7 FL (9.6-12.0); Monocytes % 8.5 % (1.7-12.7); Neutrophils % 84.8 % (38.7-73.9); Platelet Count 277 T/CUMM (130-400); Red Blood Count 2.69 MC/CUMM (3.8-5.5); Red Cell Distribution Width 15.9 % (9.3-17.3); White Blood Count 24.2 T/CUMM (4-12)
[2021-02-20 05:08] LABS: Calcium 8.4 MG/DL (8.5-10.1); Osmolality,Calculated 279.5 MOS/KG (273-304); Potassium 3.8 MMOL/L (3.5-5.1)
[2021-02-20 05:19] LABS: Hypochromasia 1+; Lymphocytes 2 % (20-55); Microcytosis 1+; Platelet Estimate Adequate; Segmented Neutrophils 92 % (50-85); Total Cells Counted 100
[2021-02-20] MEDS: KETOROLAC 15 MG/1 ML VIAL IV SCH (05:42)
[2021-02-20] MEDS: tiZANidine 4 MG TABLET PO SCH (08:10)
[2021-02-20] MEDS: SERTRALINE 50 MG TABLET PO SCH (08:10)
[2021-02-20] MEDS: FERROUS SULFATE 325 MG TABLET PO SCH (08:10)
[2021-02-20] MEDS: MEMANTINE 10 MG TABLET PO SCH ×2 (08:10→20:53)
[2021-02-20] MEDS: PREGABALIN 25 MG CAPSULE PO SCH ×2 (08:10→20:53)
[2021-02-20] MEDS: MECLIZINE 25 MG TABLET PO SCH ×2 (08:10→20:52)
[2021-02-20] MEDS: MAGNESIUM OXIDE 400 MG TABLET PO SCH (08:10)
[2021-02-20] MEDS: ONDANSETRON 4 MG/2 ML VIAL IV PRN (08:15)
[2021-02-20] MEDS: ENOXAPARIN 40 MG/0.4 ML SYRINGE SUBCUT SCH (11:45)
[2021-02-20] MEDS: DONEPEZIL 10 MG TABLET PO SCH (20:53)
[2021-02-20] MEDS: ACETAMINOPHEN 325 MG TABLET PO PRN (21:17)
[2021-02-21] MEDS: LACTATED RINGERS 1,000 ML IV SCH (01:56)
[2021-02-21 06:02] LABS: Basophils # 0.1 10*3/uL (0.0-0.2); Basophils % 0.3 % (0.0-0.8); Eosinophils # 0.1 10*3/uL (0.0-0.87); Eosinophils % 0.2 % (0.00-10.9); Hematocrit 25.1 VOL% (35.7-47.0); Hemoglobin 7.9 GM/DL (12.0-16.0); Immature Granulocytes % 3.7 %; Immature Granulocytes Absolute 0.82 #; Lymphocytes # 0.6 10*3/uL (1.4-4.0); Lymphocytes % 2.6 % (21.3-54.2); Mean Corpuscular HGB Conc 31.5 GM/DL (32-36); Mean Corpuscular Volume 90.6 FL (87-102); Mean Platelet Volume 10.5 FL (9.6-12.0); Monocytes % 10.2 % (1.7-12.7); NRBC # 0.04 10*3/uL; Platelet Count 342 T/CUMM (130-400); Red Blood Count 2.77 MC/CUMM (3.8-5.5); White Blood Count 22.2 T/CUMM (4-12)
[2021-02-21 06:23] LABS: Calcium 8.7 MG/DL (8.5-10.1); Potassium 3.4 MMOL/L (3.5-5.1)
[2021-02-21 06:31] LABS: Hypochromasia 1+; Lymphocytes 2 % (20-55); Microcytosis 1+; Nucleated Red Blood Cells 2 (0-5); Platelet Estimate Adequate; Segmented Neutrophils 87 % (50-85); Total Cells Counted 100
[2021-02-21] MEDS: ENOXAPARIN 40 MG/0.4 ML SYRINGE SUBCUT SCH (09:03)
[2021-02-21] MEDS: PREGABALIN 25 MG CAPSULE PO SCH ×2 (09:04→20:12)
[2021-02-21] MEDS: MEMANTINE 10 MG TABLET PO SCH ×2 (09:04→20:12)
[2021-02-21] MEDS: tiZANidine 4 MG TABLET PO SCH (09:04)
[2021-02-21] MEDS: FERROUS SULFATE 325 MG TABLET PO SCH (09:04)
[2021-02-21] MEDS: SERTRALINE 50 MG TABLET PO SCH (09:05)
[2021-02-21] MEDS: MAGNESIUM OXIDE 400 MG TABLET PO SCH (09:05)
[2021-02-21] MEDS: MECLIZINE 25 MG TABLET PO SCH ×2 (09:05→20:12)
[2021-02-21] MEDS: POTASSIUM CHLORIDE RIDER 10 MEQ/100 ML PREMIX IV PRN ×3 (09:34→22:24)
[2021-02-21] MEDS: ACETAMINOPHEN 325 MG TABLET PO PRN (12:30)
[2021-02-21] MEDS: DONEPEZIL 10 MG TABLET PO SCH (20:12)
[2021-02-22] MEDS: ACETAMINOPHEN 325 MG TABLET PO PRN (04:22)
[2021-02-22] MEDS: LACTATED RINGERS 1,000 ML IV SCH (04:24)
[2021-02-22] MEDS: MECLIZINE 25 MG TABLET PO SCH ×2 (10:14→21:15)
[2021-02-22] MEDS: ENOXAPARIN 40 MG/0.4 ML SYRINGE SUBCUT SCH (10:14)
[2021-02-22] MEDS: PREGABALIN 25 MG CAPSULE PO SCH ×2 (10:14→21:15)
[2021-02-22] MEDS: FERROUS SULFATE 325 MG TABLET PO SCH (10:14)
[2021-02-22] MEDS: tiZANidine 4 MG TABLET PO SCH (10:15)
[2021-02-22] MEDS: SERTRALINE 50 MG TABLET PO SCH (10:15)
[2021-02-22] MEDS: MAGNESIUM OXIDE 400 MG TABLET PO SCH (10:15)
[2021-02-22] MEDS: MEMANTINE 10 MG TABLET PO SCH ×2 (10:15→21:14)
[2021-02-22] MEDS: DONEPEZIL 10 MG TABLET PO SCH (21:15)
[2021-02-23 05:20] LABS: Basophils # 0.1 10*3/uL (0.0-0.2); Basophils % 0.3 % (0.0-0.8); Eosinophils # 0.2 10*3/uL (0.0-0.87); Hematocrit 26.2 VOL% (35.7-47.0); Hemoglobin 8.1 GM/DL (12.0-16.0); Immature Granulocytes % 7.8 %; Immature Granulocytes Absolute 1.71 #; Lymphocytes # 0.8 10*3/uL (1.4-4.0); Lymphocytes % 3.7 % (21.3-54.2); Mean Corpuscular HGB Conc 30.9 GM/DL (32-36); Mean Corpuscular Volume 91.3 FL (87-102); Mean Platelet Volume 10.1 FL (9.6-12.0); Monocytes % 14.2 % (1.7-12.7); NRBC # 0.13 10*3/uL; Platelet Count 419 T/CUMM (130-400); Red Blood Count 2.87 MC/CUMM (3.8-5.5); Red Cell Distribution Width 16.2 % (9.3-17.3); White Blood Count 21.9 T/CUMM (4-12)
[2021-02-23 05:46] LABS: Band Neutrophils 1 % (0-10); Hypochromasia 1+; Lymphocytes 4 % (20-55); Microcytosis 1+; Platelet Estimate Adequate; Segmented Neutrophils 85 % (50-85); Total Cells Counted 100
[2021-02-23] MEDS: FERROUS SULFATE 325 MG TABLET PO SCH (09:16)
[2021-02-23] MEDS: MAGNESIUM OXIDE 400 MG TABLET PO SCH (09:16)
[2021-02-23] MEDS: MEMANTINE 10 MG TABLET PO SCH ×2 (09:17→20:56)
[2021-02-23] MEDS: tiZANidine 4 MG TABLET PO SCH (09:18)
[2021-02-23] MEDS: SERTRALINE 50 MG TABLET PO SCH (09:18)
[2021-02-23] MEDS: PREGABALIN 25 MG CAPSULE PO SCH ×2 (09:18→20:56)
[2021-02-23] MEDS: MECLIZINE 25 MG TABLET PO SCH ×2 (09:19→20:55)
[2021-02-23] MEDS: ENOXAPARIN 40 MG/0.4 ML SYRINGE SUBCUT SCH (09:20)
[2021-02-23 10:03] LABS: Osmolality,Calculated 285.8 MOS/KG (273-304); Potassium 3.6 MMOL/L (3.5-5.1)
[2021-02-23] MEDS: ONDANSETRON 4 MG/2 ML VIAL IV PRN (11:17)
[2021-02-23] MEDS: HYDROmorphone 2 MG/1 ML VIAL IV PRN (12:02)
[2021-02-23] MEDS: POTASSIUM CHLORIDE RIDER 10 MEQ/100 ML PREMIX IV PRN ×2 (12:25→14:38)
[2021-02-23] MEDS: LACTATED RINGERS 1,000 ML IV SCH (14:38)
[2021-02-23] MEDS: DONEPEZIL 10 MG TABLET PO SCH (20:56)
[2021-02-24] MEDS: LACTATED RINGERS 1,000 ML IV SCH (03:18)
[2021-02-24 06:19] LABS: Basophils # 0.1 10*3/uL (0.0-0.2); Basophils % 0.2 % (0.0-0.8); Eosinophils # 0.1 10*3/uL (0.0-0.87); Eosinophils % 0.3 % (0.00-10.9); Hematocrit 26.3 VOL% (35.7-47.0); Hemoglobin 8.3 GM/DL (12.0-16.0); Immature Granulocytes % 6.9 %; Lymphocytes # 1.1 10*3/uL (1.4-4.0); Lymphocytes % 3.4 % (21.3-54.2); Mean Corpuscular HGB Conc 31.6 GM/DL (32-36); Mean Platelet Volume 10.3 FL (9.6-12.0); Monocytes % 11.7 % (1.7-12.7); NRBC # 0.21 10*3/uL; Neutrophils % 77.5 % (38.7-73.9); Platelet Count 478 T/CUMM (130-400); Red Blood Count 2.86 MC/CUMM (3.8-5.5); Red Cell Distribution Width 16.4 % (9.3-17.3); White Blood Count 31.8 T/CUMM (4-12)
[2021-02-24 06:36] LABS: Calcium 8.1 MG/DL (8.5-10.1); Potassium 3.3 MMOL/L (3.5-5.1)
[2021-02-24 06:41] LABS: Band Neutrophils 1 % (0-10); Lymphocytes 1 % (20-55); Platelet Estimate Adequate; Segmented Neutrophils 85 % (50-85); Total Cells Counted 100
[2021-02-24 06:42] LABS: Hypochromasia 1+; Microcytosis 1+
[2021-02-24] MEDS: SERTRALINE 50 MG TABLET PO SCH (08:56)
[2021-02-24] MEDS: MAGNESIUM OXIDE 400 MG TABLET PO SCH (08:56)
[2021-02-24] MEDS: MEMANTINE 10 MG TABLET PO SCH ×2 (08:56→21:01)
[2021-02-24] MEDS: FERROUS SULFATE 325 MG TABLET PO SCH (08:56)
[2021-02-24] MEDS: PREGABALIN 25 MG CAPSULE PO SCH ×2 (08:56→21:01)
[2021-02-24] MEDS: ENOXAPARIN 40 MG/0.4 ML SYRINGE SUBCUT SCH (08:57)
[2021-02-24] MEDS: tiZANidine 4 MG TABLET PO SCH (08:57)
[2021-02-24] MEDS: MECLIZINE 25 MG TABLET PO SCH ×2 (08:57→21:00)
[2021-02-24] MEDS: POTASSIUM CHLORIDE RIDER 10 MEQ/100 ML PREMIX IV PRN (08:57)
[2021-02-24] MEDS ORDERED: MAGNESIUM SULF RIDER 4 GM/100 ML PREMIX IV PRN (09:06)
[2021-02-24] MEDS: POTASSIUM CHLORIDE 20 MEQ TABLET PO PRN ×3 (09:48→14:13)
[2021-02-24] MEDS: PIPERACILLIN/TAZOBACTAM 3,375 MG in SODIUM CHLORIDE 0.9% 100 ML IV SCH ×2 (09:49→21:02)
[2021-02-24] MEDS: ACETAMINOPHEN 325 MG TABLET PO PRN (12:10)
[2021-02-24] MEDS: DEXT 5% NACL 0.45% KCL 40 MEQ 40 MEQ/1,000 ML BAG IV SCH (12:10)
[2021-02-24] MEDS: metroNIDAZOLE INJ 500 MG/100 ML PREMIX IV SCH ×2 (14:13→18:06)
[2021-02-24] MEDS: MAGNESIUM SULF RIDER 2 GM/50 ML PREMIX IV PRN (15:53)
[2021-02-24] MEDS: DONEPEZIL 10 MG TABLET PO SCH (21:00)
[2021-02-25] MEDS: metroNIDAZOLE INJ 500 MG/100 ML PREMIX IV SCH (01:34)
[2021-02-25 05:19] LABS: Basophils # 0.1 10*3/uL (0.0-0.2); Basophils % 0.2 % (0.0-0.8); Eosinophils # 0.3 10*3/uL (0.0-0.87); Eosinophils % 1.1 % (0.00-10.9); Hematocrit 25.7 VOL% (35.7-47.0); Immature Granulocytes % 5.9 %; Immature Granulocytes Absolute 1.74 #; Lymphocytes # 0.9 10*3/uL (1.4-4.0); Lymphocytes % 3.2 % (21.3-54.2); Mean Corpuscular HGB Conc 31.1 GM/DL (32-36); Mean Corpuscular Volume 92.4 FL (87-102); Mean Platelet Volume 10.2 FL (9.6-12.0); Monocytes % 5.5 % (1.7-12.7); NRBC # 0.13 10*3/uL; Neutrophils % 84.1 % (38.7-73.9); Platelet Count 515 T/CUMM (130-400); Red Blood Count 2.78 MC/CUMM (3.8-5.5); Red Cell Distribution Width 16.7 % (9.3-17.3); White Blood Count 29.4 T/CUMM (4-12)
[2021-02-25] MEDS: PIPERACILLIN/TAZOBACTAM 3,375 MG in SODIUM CHLORIDE 0.9% 100 ML IV SCH ×3 (05:23→21:05)
[2021-02-25] MEDS: ACETAMINOPHEN 325 MG TABLET PO PRN ×2 (05:28→21:32)
[2021-02-25 05:39] LABS: Potassium 4.6 MMOL/L (3.5-5.1)
[2021-02-25] MEDS: DEXT 5% NACL 0.45% KCL 40 MEQ 40 MEQ/1,000 ML BAG IV SCH ×2 (05:52→17:55)
[2021-02-25 05:54] LABS: Band Neutrophils 7 % (0-10); Eosinophils 1 % (0-10); Hypochromasia 1+; Lymphocytes 2 % (20-55); Microcytosis 1+; Myelocytes 1 %; Segmented Neutrophils 83 % (50-85); Total Cells Counted 100
[2021-02-25 05:55] LABS: Ovalocytes Slight; Platelet Estimate Increased; Polychromasia Slight; Target Cells Slight
[2021-02-25] MEDS: MECLIZINE 25 MG TABLET PO SCH ×2 (08:55→21:10)
[2021-02-25] MEDS: FERROUS SULFATE 325 MG TABLET PO SCH (08:55)
[2021-02-25] MEDS: PREGABALIN 25 MG CAPSULE PO SCH ×2 (08:57→21:11)
[2021-02-25] MEDS: MAGNESIUM OXIDE 400 MG TABLET PO SCH (08:58)
[2021-02-25] MEDS: tiZANidine 4 MG TABLET PO SCH (09:00)
[2021-02-25] MEDS: MEMANTINE 10 MG TABLET PO SCH ×2 (09:00→21:12)
[2021-02-25] MEDS: SERTRALINE 50 MG TABLET PO SCH (09:01)
[2021-02-25] MEDS: ENOXAPARIN 40 MG/0.4 ML SYRINGE SUBCUT SCH (09:02)
[2021-02-25] MEDS: LACTATED RINGERS 1,000 ML IV SCH (10:17)
[2021-02-25] MEDS ORDERED: ALBUMIN 5% 25 GM/500 ML VIAL IV ONE (15:43)
[2021-02-25] MEDS: DONEPEZIL 10 MG TABLET PO SCH (21:11)
[2021-02-26] MEDS: PIPERACILLIN/TAZOBACTAM 3,375 MG in SODIUM CHLORIDE 0.9% 100 ML IV SCH ×3 (06:12→21:08)
[2021-02-26] MEDS: DEXT 5% NACL 0.45% KCL 40 MEQ 40 MEQ/1,000 ML BAG IV SCH (06:13)
[2021-02-26 06:24] LABS: Calcium 7.8 MG/DL (8.5-10.1); Osmolality,Calculated 285.8 MOS/KG (273-304); Potassium 4.3 MMOL/L (3.5-5.1)
[2021-02-26 07:00] LABS: Basophils # 0.1 10*3/uL (0.0-0.2); Basophils % 0.2 % (0.0-0.8); Eosinophils # 0.5 10*3/uL (0.0-0.87); Eosinophils % 1.5 % (0.00-10.9); Hematocrit 25.7 VOL% (35.7-47.0); Hemoglobin 8.3 GM/DL (12.0-16.0); Immature Granulocytes % 8.6 %; Immature Granulocytes Absolute 2.84 #; Lymphocytes # 0.8 10*3/uL (1.4-4.0); Lymphocytes % 2.5 % (21.3-54.2); Mean Corpuscular HGB Conc 32.3 GM/DL (32-36); Mean Corpuscular Volume 91.1 FL (87-102); Mean Platelet Volume 10.1 FL (9.6-12.0); Monocytes % 6.3 % (1.7-12.7); NRBC # 0.16 10*3/uL; Neutrophils % 80.9 % (38.7-73.9); Platelet Count 513 T/CUMM (130-400); Red Blood Count 2.82 MC/CUMM (3.8-5.5); Red Cell Distribution Width 16.8 % (9.3-17.3); White Blood Count 33.1 T/CUMM (4-12)
[2021-02-26 07:22] LABS: Hypochromasia 1+; Lymphocytes 4 % (20-55); Microcytosis 1+; Platelet Estimate Adequate; Segmented Neutrophils 83 % (50-85); Total Cells Counted 100
[2021-02-26] MEDS: ENOXAPARIN 40 MG/0.4 ML SYRINGE SUBCUT SCH (11:25)
[2021-02-26] MEDS: MEMANTINE 10 MG TABLET PO SCH ×2 (11:25→21:09)
[2021-02-26] MEDS: MECLIZINE 25 MG TABLET PO SCH ×2 (11:25→21:09)
[2021-02-26] MEDS: FERROUS SULFATE 325 MG TABLET PO SCH (11:25)
[2021-02-26] MEDS: PREGABALIN 25 MG CAPSULE PO SCH ×2 (11:25→21:10)
[2021-02-26] MEDS: MAGNESIUM OXIDE 400 MG TABLET PO SCH (11:25)
[2021-02-26] MEDS: tiZANidine 4 MG TABLET PO SCH (11:26)
[2021-02-26] MEDS: SERTRALINE 50 MG TABLET PO SCH (11:26)
[2021-02-26] MEDS ORDERED: ALBUTEROL/IPRATROPIUM 3 ML NEB RESP TX SCH (13:00)
[2021-02-26] MEDS: ALBUTEROL/IPRATROPIUM 3 ML NEB RESP TX SCH ×2 (13:49→19:56)
[2021-02-26] MEDS ORDERED: FUROSEMIDE 20 MG/2 ML VIAL IV ONE (16:05)
[2021-02-26] MEDS: MAGNESIUM SULF RIDER 2 GM/50 ML PREMIX IV PRN (18:10)
[2021-02-26] MEDS: DONEPEZIL 10 MG TABLET PO SCH (21:10)
[2021-02-27] MEDS: ALBUTEROL/IPRATROPIUM 3 ML NEB RESP TX SCH ×7 (01:47→23:50)
[2021-02-27] MEDS: PIPERACILLIN/TAZOBACTAM 3,375 MG in SODIUM CHLORIDE 0.9% 100 ML IV SCH ×3 (05:15→21:11)
[2021-02-27] MEDS: DEXT 5% NACL 0.45% KCL 40 MEQ 40 MEQ/1,000 ML BAG IV SCH ×2 (08:16→08:19)
[2021-02-27] MEDS: FERROUS SULFATE 325 MG TABLET PO SCH (08:19)
[2021-02-27] MEDS: MEMANTINE 10 MG TABLET PO SCH ×2 (08:20→21:13)
[2021-02-27] MEDS: MECLIZINE 25 MG TABLET PO SCH ×2 (08:20→21:13)
[2021-02-27] MEDS: tiZANidine 4 MG TABLET PO SCH (08:20)
[2021-02-27] MEDS: MAGNESIUM OXIDE 400 MG TABLET PO SCH (08:20)
[2021-02-27] MEDS: PREGABALIN 25 MG CAPSULE PO SCH ×2 (08:20→21:13)
[2021-02-27] MEDS: ENOXAPARIN 40 MG/0.4 ML SYRINGE SUBCUT SCH (08:20)
[2021-02-27] MEDS: SERTRALINE 50 MG TABLET PO SCH (08:21)
[2021-02-27 08:28] LABS: Basophils % 0.1 % (0.0-0.8); Eosinophils # 0.2 10*3/uL (0.0-0.87); Eosinophils % 0.5 % (0.00-10.9); Hematocrit 27.9 VOL% (35.7-47.0); Immature Granulocytes % 9.5 %; Immature Granulocytes Absolute 3.69 #; Lymphocytes # 1.2 10*3/uL (1.4-4.0); Lymphocytes % 3.1 % (21.3-54.2); Mean Corpuscular HGB Conc 32.3 GM/DL (32-36); Mean Corpuscular Volume 89.1 FL (87-102); Monocytes % 6.6 % (1.7-12.7); NRBC # 0.19 10*3/uL; Neutrophils % 80.2 % (38.7-73.9); Platelet Count 643 T/CUMM (130-400); Red Blood Count 3.13 MC/CUMM (3.8-5.5); Red Cell Distribution Width 16.9 % (9.3-17.3); White Blood Count 38.7 T/CUMM (4-12)
[2021-02-27 08:40] LABS: INR 1.1; PT Patient Result 12.2 SECS (10.5-12.0)
[2021-02-27 08:43] LABS: Calcium 7.9 MG/DL (8.5-10.1); Osmolality,Calculated 278.3 MOS/KG (273-304); Potassium 3.2 MMOL/L (3.5-5.1)
[2021-02-27 09:05] LABS: Band Neutrophils 6 % (0-10); Eosinophils 2 % (0-10); Lymphocytes 10 % (20-55); Platelet Estimate Increased; Segmented Neutrophils 74 % (50-85); Total Cells Counted 100
[2021-02-27 09:06] LABS: Anisocytosis 2+; Burr Cells Few; Macrocytosis 1+; Polychromasia Slight
[2021-02-27] MEDS: ONDANSETRON 4 MG/2 ML VIAL IV PRN (14:53)
[2021-02-27] MEDS: DONEPEZIL 10 MG TABLET PO SCH (21:12)
[2021-02-28] MEDS: DEXT 5% NACL 0.45% KCL 40 MEQ 40 MEQ/1,000 ML BAG IV SCH (02:16)
[2021-02-28] MEDS: ALBUTEROL/IPRATROPIUM 3 ML NEB RESP TX SCH ×5 (03:00→20:20)
[2021-02-28 04:57] LABS: Basophils # 0.2 10*3/uL (0.0-0.2); Basophils % 0.6 % (0.0-0.8); Eosinophils # 0.2 10*3/uL (0.0-0.87); Eosinophils % 0.7 % (0.00-10.9); Hematocrit 26.8 VOL% (35.7-47.0); Hemoglobin 8.5 GM/DL (12.0-16.0); Immature Granulocytes % 11.2 %; Immature Granulocytes Absolute 3.65 #; Lymphocytes # 0.9 10*3/uL (1.4-4.0); Lymphocytes % 2.8 % (21.3-54.2); Mean Corpuscular HGB Conc 31.7 GM/DL (32-36); Mean Corpuscular Volume 89.9 FL (87-102); Mean Platelet Volume 10.1 FL (9.6-12.0); Monocytes % 11.1 % (1.7-12.7); NRBC # 0.13 10*3/uL; Neutrophils % 73.6 % (38.7-73.9); Platelet Count 641 T/CUMM (130-400); Red Blood Count 2.98 MC/CUMM (3.8-5.5); White Blood Count 32.5 T/CUMM (4-12)
[2021-02-28] MEDS: PIPERACILLIN/TAZOBACTAM 3,375 MG in SODIUM CHLORIDE 0.9% 100 ML IV SCH ×3 (04:58→23:03)
[2021-02-28 05:22] LABS: Calcium 7.6 MG/DL (8.5-10.1); Potassium 3.2 MMOL/L (3.5-5.1)
[2021-02-28 05:31] LABS: Hypochromasia 1+; Lymphocytes 7 % (20-55); Microcytosis 1+; Ovalocytes Slight; Platelet Estimate Adequate; Segmented Neutrophils 87 % (50-85); Total Cells Counted 100
[2021-02-28] MEDS: MAGNESIUM OXIDE 400 MG TABLET PO SCH (08:26)
[2021-02-28] MEDS: MEMANTINE 10 MG TABLET PO SCH ×2 (08:27→20:51)
[2021-02-28] MEDS: MECLIZINE 25 MG TABLET PO SCH ×2 (08:27→23:13)
[2021-02-28] MEDS: SERTRALINE 50 MG TABLET PO SCH (08:27)
[2021-02-28] MEDS: PREGABALIN 25 MG CAPSULE PO SCH ×2 (08:27→23:13)
[2021-02-28] MEDS: tiZANidine 4 MG TABLET PO SCH (08:27)
[2021-02-28] MEDS: POTASSIUM CHLORIDE 20 MEQ TABLET PO PRN ×4 (08:27→16:23)
[2021-02-28] MEDS: FERROUS SULFATE 325 MG TABLET PO SCH (08:27)
[2021-02-28] MEDS: ENOXAPARIN 40 MG/0.4 ML SYRINGE SUBCUT SCH (08:28)
[2021-02-28] MEDS ORDERED: ALBUMIN 5% 25 GM/500 ML VIAL IV ONE (20:23)
[2021-02-28] MEDS ORDERED: ALBUMIN 5% 25 GM/500 ML VIAL IV STA (20:24)
[2021-02-28 20:50] LABS: Basophils # 0.1 10*3/uL (0.0-0.2); Basophils % 0.2 % (0.0-0.8); Eosinophils # 0.6 10*3/uL (0.0-0.87); Hematocrit 24.7 VOL% (35.7-47.0); Hemoglobin 7.6 GM/DL (12.0-16.0); Immature Granulocytes % 11.6 %; Immature Granulocytes Absolute 3.68 #; Lymphocytes # 1.4 10*3/uL (1.4-4.0); Lymphocytes % 4.5 % (21.3-54.2); Mean Corpuscular HGB Conc 30.8 GM/DL (32-36); Mean Corpuscular Volume 92.5 FL (87-102); Monocytes % 13.1 % (1.7-12.7); NRBC # 0.13 10*3/uL; Neutrophils % 68.6 % (38.7-73.9); Platelet Count 553 T/CUMM (130-400); Red Blood Count 2.67 MC/CUMM (3.8-5.5); Red Cell Distribution Width 17.7 % (9.3-17.3); White Blood Count 31.8 T/CUMM (4-12)
[2021-02-28] MEDS: DONEPEZIL 10 MG TABLET PO SCH (20:51)
[2021-02-28 21:14] LABS: Band Neutrophils 3 % (0-10); Lymphocytes 9 % (20-55); Metamyelocytes 6 %; Myelocytes 4 %; Segmented Neutrophils 71 % (50-85); Total Cells Counted 100
[2021-02-28 21:15] LABS: Hypochromasia 1+; Toxic Granulation 1+
[2021-02-28 21:16] LABS: Anisocytosis 1+; Hypersegmented Neutrophil 1+; Polychromasia 1+
[2021-02-28 21:19] LABS: Platelet Estimate Decreased
[2021-03-01] MEDS: ALBUTEROL/IPRATROPIUM 3 ML NEB RESP TX SCH ×7 (00:35→23:02)
[2021-03-01] MEDS: DEXT 5% NACL 0.45% KCL 40 MEQ 40 MEQ/1,000 ML BAG IV SCH ×2 (02:36→11:07)
[2021-03-01] MEDS: PIPERACILLIN/TAZOBACTAM 3,375 MG in SODIUM CHLORIDE 0.9% 100 ML IV SCH ×3 (05:56→22:13)
[2021-03-01 07:12] LABS: Basophils # 0.1 10*3/uL (0.0-0.2); Basophils % 0.3 % (0.0-0.8); Eosinophils # 0.7 10*3/uL (0.0-0.87); Eosinophils % 2.4 % (0.00-10.9); Hematocrit 25.9 VOL% (35.7-47.0); Hemoglobin 7.8 GM/DL (12.0-16.0); Immature Granulocytes % 13.3 %; Immature Granulocytes Absolute 4.02 #; Lymphocytes # 1.4 10*3/uL (1.4-4.0); Lymphocytes % 4.5 % (21.3-54.2); Mean Corpuscular HGB Conc 30.1 GM/DL (32-36); Mean Corpuscular Volume 91.5 FL (87-102); Mean Platelet Volume 10.1 FL (9.6-12.0); Monocytes % 13.4 % (1.7-12.7); NRBC # 0.08 10*3/uL; Neutrophils % 66.1 % (38.7-73.9); Platelet Count 668 T/CUMM (130-400); Red Blood Count 2.83 MC/CUMM (3.8-5.5); Red Cell Distribution Width 17.5 % (9.3-17.3); White Blood Count 30.3 T/CUMM (4-12)
[2021-03-01 07:32] LABS: Calcium 8.1 MG/DL (8.5-10.1); Osmolality,Calculated 279.3 MOS/KG (273-304); Potassium 4.9 MMOL/L (3.5-5.1)
[2021-03-01 07:39] LABS: Eosinophils 3 % (0-10); Hypochromasia 1+; Lymphocytes 5 % (20-55); Platelet Estimate Increased; Segmented Neutrophils 74 % (50-85); Total Cells Counted 100
[2021-03-01 07:40] LABS: Macrocytosis Slight; Polychromasia Slight
[2021-03-01] MEDS: MAGNESIUM OXIDE 400 MG TABLET PO SCH (09:40)
[2021-03-01] MEDS: tiZANidine 4 MG TABLET PO SCH (09:40)
[2021-03-01] MEDS: MEMANTINE 10 MG TABLET PO SCH ×2 (09:41→22:12)
[2021-03-01] MEDS: MECLIZINE 25 MG TABLET PO SCH ×3 (09:41→22:12)
[2021-03-01] MEDS: SERTRALINE 50 MG TABLET PO SCH (09:42)
[2021-03-01] MEDS: FERROUS SULFATE 325 MG TABLET PO SCH (09:42)
[2021-03-01] MEDS: PREGABALIN 25 MG CAPSULE PO SCH ×2 (09:42→22:12)
[2021-03-01] MEDS: ENOXAPARIN 40 MG/0.4 ML SYRINGE SUBCUT SCH (09:46)
[2021-03-01] MEDS: DONEPEZIL 10 MG TABLET PO SCH (22:11)
[2021-03-02] MEDS: ALBUTEROL/IPRATROPIUM 3 ML NEB RESP TX SCH ×6 (02:18→23:11)
[2021-03-02] MEDS: DEXT 5% NACL 0.45% KCL 40 MEQ 40 MEQ/1,000 ML BAG IV SCH ×2 (04:18→08:55)
[2021-03-02 05:35] LABS: Basophils # 0.1 10*3/uL (0.0-0.2); Basophils % 0.4 % (0.0-0.8); Eosinophils # 0.5 10*3/uL (0.0-0.87); Eosinophils % 1.9 % (0.00-10.9); Hematocrit 27.9 VOL% (35.7-47.0); Hemoglobin 8.4 GM/DL (12.0-16.0); Immature Granulocytes % 13.5 %; Immature Granulocytes Absolute 3.72 #; Lymphocytes # 1.3 10*3/uL (1.4-4.0); Lymphocytes % 4.7 % (21.3-54.2); Mean Corpuscular HGB Conc 30.1 GM/DL (32-36); Mean Corpuscular Volume 91.8 FL (87-102); Mean Platelet Volume 10.2 FL (9.6-12.0); Monocytes % 12.5 % (1.7-12.7); NRBC # 0.06 10*3/uL; Platelet Count 741 T/CUMM (130-400); Red Blood Count 3.04 MC/CUMM (3.8-5.5); Red Cell Distribution Width 18.1 % (9.3-17.3); White Blood Count 27.6 T/CUMM (4-12)
[2021-03-02] MEDS: PIPERACILLIN/TAZOBACTAM 3,375 MG in SODIUM CHLORIDE 0.9% 100 ML IV SCH ×3 (05:50→20:21)
[2021-03-02 05:59] LABS: Band Neutrophils 4 % (0-10); Eosinophils 2 % (0-10); Hypochromasia 1+; Lymphocytes 5 % (20-55); Microcytosis 1+; Platelet Estimate Increased; Segmented Neutrophils 80 % (50-85); Target Cells Slight; Total Cells Counted 100
[2021-03-02] MEDS: FERROUS SULFATE 325 MG TABLET PO SCH (08:27)
[2021-03-02] MEDS: DEXTROSE 5% NACL 0.45% 1,000 ML IV SCH (09:12)
[2021-03-02] MEDS: MAGNESIUM OXIDE 400 MG TABLET PO SCH (09:22)
[2021-03-02] MEDS: PREGABALIN 25 MG CAPSULE PO SCH ×2 (09:22→20:22)
[2021-03-02] MEDS: tiZANidine 4 MG TABLET PO SCH (09:24)
[2021-03-02] MEDS: MECLIZINE 25 MG TABLET PO SCH ×2 (09:24→20:21)
[2021-03-02] MEDS: MEMANTINE 10 MG TABLET PO SCH ×2 (09:24→20:21)
[2021-03-02] MEDS: ENOXAPARIN 40 MG/0.4 ML SYRINGE SUBCUT SCH (09:25)
[2021-03-02] MEDS: SERTRALINE 50 MG TABLET PO SCH (09:25)
[2021-03-02] MEDS ORDERED: BENZONATATE 100 MG CAPSULE PO PRN (09:34)
[2021-03-02] MEDS: DESITIN 4OZ/NYSTATIN 15 GRAM MIXTURE PASTE TOP SCH ×2 (14:23→20:22)
[2021-03-02] MEDS: DONEPEZIL 10 MG TABLET PO SCH (20:21)
[2021-03-02] MEDS: ACETAMINOPHEN 325 MG TABLET PO PRN (23:24)
[2021-03-03] MEDS: ALBUTEROL/IPRATROPIUM 3 ML NEB RESP TX SCH ×3 (03:51→11:25)
[2021-03-03] MEDS: PIPERACILLIN/TAZOBACTAM 3,375 MG in SODIUM CHLORIDE 0.9% 100 ML IV SCH (05:03)
[2021-03-03] MEDS: DEXTROSE 5% NACL 0.45% 1,000 ML IV SCH (05:09)
[2021-03-03 07:35] LABS: Basophils # 0.1 10*3/uL (0.0-0.2); Basophils % 0.4 % (0.0-0.8); Eosinophils # 0.5 10*3/uL (0.0-0.87); Eosinophils % 2.2 % (0.00-10.9); Hematocrit 28.9 VOL% (35.7-47.0); Hemoglobin 8.8 GM/DL (12.0-16.0); Immature Granulocytes % 9.3 %; Lymphocytes % 4.4 % (21.3-54.2); Mean Corpuscular HGB Conc 30.4 GM/DL (32-36); Mean Corpuscular Volume 92.9 FL (87-102); Mean Platelet Volume 9.8 FL (9.6-12.0); Monocytes % 13.4 % (1.7-12.7); NRBC # 0.03 10*3/uL; Neutrophils % 70.3 % (38.7-73.9); Platelet Count 879 T/CUMM (130-400); Red Blood Count 3.11 MC/CUMM (3.8-5.5); Red Cell Distribution Width 18.4 % (9.3-17.3); White Blood Count 22.6 T/CUMM (4-12)
[2021-03-03 07:50] LABS: Calcium 8.4 MG/DL (8.5-10.1); Osmolality,Calculated 274.5 MOS/KG (273-304); Potassium 4.3 MMOL/L (3.5-5.1)
[2021-03-03 07:55] LABS: Band Neutrophils 2 % (0-10); Eosinophils 4 % (0-10); Hypochromasia 1+; Lymphocytes 9 % (20-55); Segmented Neutrophils 74 % (50-85); Total Cells Counted 100
[2021-03-03 07:56] LABS: Microcytosis 1+; Ovalocytes Slight; Platelet Estimate Increased; Polychromasia Slight
[2021-03-03] MEDS: MECLIZINE 25 MG TABLET PO SCH (09:44)
[2021-03-03] MEDS: PREGABALIN 25 MG CAPSULE PO SCH (09:44)
[2021-03-03] MEDS: MEMANTINE 10 MG TABLET PO SCH (09:44)
[2021-03-03] MEDS: FERROUS SULFATE 325 MG TABLET PO SCH (09:44)
[2021-03-03] MEDS: ENOXAPARIN 40 MG/0.4 ML SYRINGE SUBCUT SCH (09:44)
[2021-03-03] MEDS: tiZANidine 4 MG TABLET PO SCH (09:44)
[2021-03-03] MEDS: SERTRALINE 50 MG TABLET PO SCH (09:44)
[2021-03-03] MEDS: MAGNESIUM OXIDE 400 MG TABLET PO SCH (09:46)
[2021-03-03] MEDS: DESITIN 4OZ/NYSTATIN 15 GRAM MIXTURE PASTE TOP SCH (09:49)
[2021-03-03 11:26] VITALS: BP 112/49
== END 2021-03-03 12:00 | DRG 329 ==
LOC: N.OR 05:45 → N.SDSINP 05:48 → N.3E 11:52 → EDSTATUS 14:00
PROVIDERS: ADMIT Surgery; ATTEND Surgery